=== PATIENT | female | born 1945 | race Caucasian/White ===

== ENCOUNTER 2021-11-08 14:07 | Inpatient (IN) ==
[2021-11-08] MEDS: MOM Conc 10 ML UD.LIQ PO PRN (16:12)
[2021-11-08] MEDS ORDERED: Nitroglycerin 0.4 MG TAB.SUBL SL PRN (16:23)
[2021-11-08] MEDS ORDERED: SUMAtriptan succinate 50 MG TABLET PO PRN (16:23)
[2021-11-08] MEDS ORDERED: *HR* Dextrose 50 % in Water (Syg) 50 ML SYRINGE IVP PRN (16:25)
[2021-11-08] MEDS ORDERED: Dextrose Gel 15 GM/37.5 ML TUBE PO PRN ×2 (16:25)
[2021-11-08] MEDS ORDERED: D5% in Water 1,000 ML IVC PRN (16:25)
[2021-11-08] MEDS: Insulin LISPRO 300 UNITS/3 ML VIAL SUBQ SCH ×2 (19:01→20:06)
[2021-11-08] MEDS: tiZANidine 4 MG TABLET PO SCH (20:14)
[2021-11-08] MEDS: Gabapentin 300 MG CAPSULE PO SCH (20:14)
[2021-11-08] MEDS: Sennosides/Docusate Sodium TABLET PO SCH (20:14)
[2021-11-08] MEDS: Mirtazapine 15 MG TABLET PO SCH (20:14)
[2021-11-08] MEDS: traZODone 50 MG TABLET PO SCH (20:14)
[2021-11-08] MEDS: QUEtiapine Fumarate 100 MG TABLET PO SCH (20:14)
[2021-11-08] MEDS: *HR* OxyCODONE/APAP 5/325 TABLET PO PRN (20:15)
[2021-11-08] MEDS: Lactobacillus 1 EACH CAP.SPRINK PO SCH (20:15)
[2021-11-08] MEDS: *HR* Heparin 5,000 UNIT/ML VIAL SQ SCH (20:59)
[2021-11-08] MEDS: Budesonide/Formoterol 160/4.5 1 PUFF INH IH SCH (21:59)
[2021-11-09] MEDS: *HR* OxyCODONE/APAP 5/325 TABLET PO PRN ×3 (04:33→21:12)
[2021-11-09] MEDS: *HR* Heparin 5,000 UNIT/ML VIAL SQ SCH ×3 (06:12→21:16)
[2021-11-09 08:19] LABS: Basophils % 0.4 %; Eosinophils # 0.1 K/mcL (0.0-0.6); Eosinophils % 1.8 %; Hematocrit 30.7 % (35.3-44.9); Hemoglobin 9.9 g/dL (11.5-15.4); Immature Granulocytes % 0.7 % (0-4); Lymphocytes # 1.8 K/mcL (0.6-4.6); Lymphocytes % 23.9 %; Mean Corpuscular HGB Conc 32.2 g/dL (31.6-35.5); Mean Corpuscular Hemoglobin 27.8 pg (28.0-33.3); Mean Corpuscular Volume 86.2 fL (83.0-100.0); Mean Platelet Volume 10.8 fL (9.4-12.4); Monocytes # 0.7 K/mcL (0.0-1.3); Monocytes % 10.1 %; Neutrophils # 4.7 K/mcL (1.6-8.9); Platelet Count 196 K/mcL (140-400); Red Blood Count 3.56 M/mcL (3.82-4.97); Red Cell Distribution Width 13.3 % (11.5-14.5); Segmented Neutrophils % 63.1 %; White Blood Count 7.4 K/mcL (4.3-11.1)
[2021-11-09 08:53] LABS: Potassium 4.4 mEq/L (3.5-5.1)
[2021-11-09] MEDS: Tiotropium 10 INH DOSE IH SCH (09:10)
[2021-11-09] MEDS: Budesonide/Formoterol 160/4.5 1 PUFF INH IH SCH ×2 (09:10→21:45)
[2021-11-09] MEDS: Insulin LISPRO 300 UNITS/3 ML VIAL SUBQ SCH ×4 (09:27→21:10)
[2021-11-09] MEDS: Aspirin Enteric Coated 81 MG Tablet PO SCH (09:27)
[2021-11-09] MEDS: Gabapentin 300 MG CAPSULE PO SCH ×4 (09:28→21:16)
[2021-11-09] MEDS: Sennosides/Docusate Sodium TABLET PO SCH ×2 (09:28→21:12)
[2021-11-09] MEDS: Lactobacillus 1 EACH CAP.SPRINK PO SCH ×2 (09:28→21:13)
[2021-11-09 11:51] LABS: Bilirubin,Urine Negative (Negative); Blood,Urine Trace-lysed (Negative); Clarity,Urine Clear (Clear); Glucose,Urine (UA) 250 mg/dL (Normal); Ketones,Urine Negative (Negative); Leukocyte Esterase,Urine Negative (Negative); Nitrite,Urine Negative (Negative); PH,Urine 6.5 pH Units (5.0-8.0); Protein,Urine Negative (Neg-Trace); Urobilinogen,Urine Normal (Normal)
[2021-11-09 11:53] LABS: Color,Urine Light Yellow (Yellow)
[2021-11-09 13:06] LABS: Bacteria,Urine Few per hpf (None-Few); RBC,Urine 0-3 per hpf (0-3); Squamous Epithelial Cell,Urine Few per hpf (None-Few); WBC,Urine 0-3 per hpf (0-3)
[2021-11-09] MEDS: traZODone 50 MG TABLET PO SCH (21:11)
[2021-11-09] MEDS: tiZANidine 4 MG TABLET PO SCH (21:13)
[2021-11-09] MEDS: Mirtazapine 15 MG TABLET PO SCH (21:13)
[2021-11-09] MEDS: QUEtiapine Fumarate 100 MG TABLET PO SCH (21:13)
[2021-11-10] MEDS: *HR* OxyCODONE/APAP 5/325 TABLET PO PRN ×2 (06:31→16:07)
[2021-11-10] MEDS: *HR* Heparin 5,000 UNIT/ML VIAL SQ SCH ×3 (06:32→21:27)
[2021-11-10] MEDS: Lactobacillus 1 EACH CAP.SPRINK PO SCH ×2 (08:58→21:26)
[2021-11-10] MEDS: Gabapentin 300 MG CAPSULE PO SCH ×4 (08:59→21:26)
[2021-11-10] MEDS: Sennosides/Docusate Sodium TABLET PO SCH ×2 (08:59→21:26)
[2021-11-10] MEDS: Aspirin Enteric Coated 81 MG Tablet PO SCH (09:01)
[2021-11-10] MEDS: Insulin LISPRO 300 UNITS/3 ML VIAL SUBQ SCH ×4 (09:18→21:28)
[2021-11-10] MEDS: Budesonide/Formoterol 160/4.5 1 PUFF INH IH SCH ×2 (10:35→22:34)
[2021-11-10] MEDS: Tiotropium 10 INH DOSE IH SCH (10:36)
[2021-11-10] MEDS: MOM Conc 10 ML UD.LIQ PO PRN (16:07)
[2021-11-10] MEDS: traZODone 50 MG TABLET PO SCH (21:26)
[2021-11-10] MEDS: QUEtiapine Fumarate 100 MG TABLET PO SCH (21:26)
[2021-11-10] MEDS: tiZANidine 4 MG TABLET PO SCH (21:27)
[2021-11-10] MEDS: Mirtazapine 15 MG TABLET PO SCH (21:27)
[2021-11-11] MEDS: *HR* Heparin 5,000 UNIT/ML VIAL SQ SCH ×3 (05:43→21:29)
[2021-11-11 07:53] LABS: Basophils % 0.5 %; Eosinophils # 0.2 K/mcL (0.0-0.6); Eosinophils % 1.8 %; Hemoglobin 10.8 g/dL (11.5-15.4); Immature Granulocytes % 1.8 % (0-4); Lymphocytes # 1.8 K/mcL (0.6-4.6); Lymphocytes % 21.9 %; Mean Corpuscular HGB Conc 33.8 g/dL (31.6-35.5); Mean Corpuscular Hemoglobin 28.7 pg (28.0-33.3); Mean Corpuscular Volume 85.1 fL (83.0-100.0); Mean Platelet Volume 10.4 fL (9.4-12.4); Monocytes # 0.9 K/mcL (0.0-1.3); Monocytes % 10.6 %; Neutrophils # 5.2 K/mcL (1.6-8.9); Platelet Count 249 K/mcL (140-400); Red Blood Count 3.76 M/mcL (3.82-4.97); Red Cell Distribution Width 13.3 % (11.5-14.5); Segmented Neutrophils % 63.4 %; White Blood Count 8.2 K/mcL (4.3-11.1)
[2021-11-11 08:05] LABS: Calcium 9.8 mg/dL (8.6-10.3); Potassium 4.7 mEq/L (3.5-5.1)
[2021-11-11] MEDS: Gabapentin 300 MG CAPSULE PO SCH ×4 (08:55→21:28)
[2021-11-11] MEDS: Aspirin Enteric Coated 81 MG Tablet PO SCH (08:55)
[2021-11-11] MEDS: Sennosides/Docusate Sodium TABLET PO SCH ×2 (08:55→21:29)
[2021-11-11] MEDS: Lactobacillus 1 EACH CAP.SPRINK PO SCH ×2 (08:55→21:29)
[2021-11-11] MEDS: *HR* OxyCODONE/APAP 5/325 TABLET PO PRN ×3 (08:56→21:29)
[2021-11-11] MEDS: Insulin LISPRO 300 UNITS/3 ML VIAL SUBQ SCH ×4 (08:56→21:30)
[2021-11-11] MEDS: Budesonide/Formoterol 160/4.5 1 PUFF INH IH SCH ×2 (10:09→21:57)
[2021-11-11] MEDS: Tiotropium 10 INH DOSE IH SCH (10:10)
[2021-11-11] MEDS: tiZANidine 4 MG TABLET PO SCH (21:28)
[2021-11-11] MEDS: QUEtiapine Fumarate 100 MG TABLET PO SCH (21:29)
[2021-11-11] MEDS: traZODone 50 MG TABLET PO SCH (21:29)
[2021-11-11] MEDS: Mirtazapine 15 MG TABLET PO SCH (21:29)
[2021-11-12] MEDS: *HR* Heparin 5,000 UNIT/ML VIAL SQ SCH ×3 (06:27→21:31)
[2021-11-12] MEDS: Aspirin Enteric Coated 81 MG Tablet PO SCH (08:17)
[2021-11-12] MEDS: Gabapentin 300 MG CAPSULE PO SCH ×4 (08:17→21:30)
[2021-11-12] MEDS: Lactobacillus 1 EACH CAP.SPRINK PO SCH ×2 (08:17→21:30)
[2021-11-12] MEDS: Sennosides/Docusate Sodium TABLET PO SCH ×2 (08:17→21:31)
[2021-11-12] MEDS: Insulin LISPRO 300 UNITS/3 ML VIAL SUBQ SCH ×4 (08:18→21:32)
[2021-11-12] MEDS: Budesonide/Formoterol 160/4.5 1 PUFF INH IH SCH ×2 (09:37→22:36)
[2021-11-12] MEDS: Tiotropium 10 INH DOSE IH SCH (09:38)
[2021-11-12] MEDS: Nitrofurantoin (BID) 100 MG CAPSULE PO SCH (17:03)
[2021-11-12] MEDS: *HR* OxyCODONE/APAP 5/325 TABLET PO PRN (17:04)
[2021-11-12] MEDS ORDERED: *HR* OxyCODONE Immed Rel 5 MG TABLET PO ONE (19:53)
[2021-11-12] MEDS: traZODone 50 MG TABLET PO SCH (21:30)
[2021-11-12] MEDS: QUEtiapine Fumarate 100 MG TABLET PO SCH (21:31)
[2021-11-12] MEDS: tiZANidine 4 MG TABLET PO SCH (21:31)
[2021-11-12] MEDS: Mirtazapine 15 MG TABLET PO SCH (21:31)
[2021-11-13] MEDS: *HR* Heparin 5,000 UNIT/ML VIAL SQ SCH ×3 (06:58→22:08)
[2021-11-13] MEDS: *HR* OxyCODONE/APAP 5/325 TABLET PO PRN ×2 (06:58→19:57)
[2021-11-13] MEDS: Budesonide/Formoterol 160/4.5 1 PUFF INH IH SCH ×2 (09:18→22:38)
[2021-11-13] MEDS: Tiotropium 10 INH DOSE IH SCH (09:19)
[2021-11-13] MEDS: Aspirin Enteric Coated 81 MG Tablet PO SCH (09:39)
[2021-11-13] MEDS: Nitrofurantoin (BID) 100 MG CAPSULE PO SCH ×2 (09:39→16:44)
[2021-11-13] MEDS: Sennosides/Docusate Sodium TABLET PO SCH ×2 (09:39→19:58)
[2021-11-13] MEDS: Lactobacillus 1 EACH CAP.SPRINK PO SCH ×2 (09:39→19:58)
[2021-11-13] MEDS: Insulin LISPRO 300 UNITS/3 ML VIAL SUBQ SCH ×4 (09:40→19:59)
[2021-11-13] MEDS: Gabapentin 300 MG CAPSULE PO SCH ×4 (09:40→19:59)
[2021-11-13] MEDS: traZODone 50 MG TABLET PO SCH (19:58)
[2021-11-13] MEDS: QUEtiapine Fumarate 100 MG TABLET PO SCH (19:58)
[2021-11-13] MEDS: Mirtazapine 15 MG TABLET PO SCH (19:58)
[2021-11-13] MEDS: tiZANidine 4 MG TABLET PO SCH (19:59)
[2021-11-14] MEDS: *HR* Heparin 5,000 UNIT/ML VIAL SQ SCH ×3 (06:23→19:55)
[2021-11-14] MEDS: Tiotropium 10 INH DOSE IH SCH (09:42)
[2021-11-14] MEDS: Budesonide/Formoterol 160/4.5 1 PUFF INH IH SCH ×2 (09:42→20:58)
[2021-11-14] MEDS: Gabapentin 300 MG CAPSULE PO SCH ×4 (10:33→19:52)
[2021-11-14] MEDS: Nitrofurantoin (BID) 100 MG CAPSULE PO SCH ×2 (10:33→17:45)
[2021-11-14] MEDS: Lactobacillus 1 EACH CAP.SPRINK PO SCH ×2 (10:33→19:52)
[2021-11-14] MEDS: Sennosides/Docusate Sodium TABLET PO SCH ×2 (10:33→19:52)
[2021-11-14] MEDS: *HR* OxyCODONE/APAP 5/325 TABLET PO PRN ×2 (10:34→19:52)
[2021-11-14] MEDS: Aspirin Enteric Coated 81 MG Tablet PO SCH (10:34)
[2021-11-14] MEDS: Insulin LISPRO 300 UNITS/3 ML VIAL SUBQ SCH ×4 (10:44→19:53)
[2021-11-14] MEDS: traZODone 50 MG TABLET PO SCH (19:51)
[2021-11-14] MEDS: tiZANidine 4 MG TABLET PO SCH (19:52)
[2021-11-14] MEDS: Mirtazapine 15 MG TABLET PO SCH (19:52)
[2021-11-14] MEDS: QUEtiapine Fumarate 100 MG TABLET PO SCH (19:52)
[2021-11-15] MEDS: *HR* Heparin 5,000 UNIT/ML VIAL SQ SCH ×3 (05:59→19:55)
[2021-11-15] MEDS: *HR* OxyCODONE/APAP 5/325 TABLET PO PRN ×2 (06:00→17:20)
[2021-11-15 07:54] LABS: Basophils # 0.1 K/mcL (0.0-0.2); Basophils % 0.7 %; Eosinophils # 0.1 K/mcL (0.0-0.6); Eosinophils % 1.7 %; Hematocrit 29.9 % (35.3-44.9); Hemoglobin 9.9 g/dL (11.5-15.4); Immature Granulocytes % 2.5 % (0-4); Lymphocytes # 2.6 K/mcL (0.6-4.6); Lymphocytes % 30.8 %; Mean Corpuscular HGB Conc 33.1 g/dL (31.6-35.5); Mean Corpuscular Hemoglobin 28.7 pg (28.0-33.3); Mean Corpuscular Volume 86.7 fL (83.0-100.0); Mean Platelet Volume 10.2 fL (9.4-12.4); Monocytes # 0.8 K/mcL (0.0-1.3); Monocytes % 9.2 %; Neutrophils # 4.6 K/mcL (1.6-8.9); Platelet Count 214 K/mcL (140-400); Red Blood Count 3.45 M/mcL (3.82-4.97); Red Cell Distribution Width 13.7 % (11.5-14.5); Segmented Neutrophils % 55.1 %; White Blood Count 8.4 K/mcL (4.3-11.1)
[2021-11-15 08:32] LABS: Calcium 9.7 mg/dL (8.6-10.3); Potassium 4.5 mEq/L (3.5-5.1)
[2021-11-15] MEDS: Tiotropium 10 INH DOSE IH SCH (09:20)
[2021-11-15] MEDS: Budesonide/Formoterol 160/4.5 1 PUFF INH IH SCH ×2 (09:20→21:31)
[2021-11-15] MEDS: Sennosides/Docusate Sodium TABLET PO SCH ×2 (09:29→19:55)
[2021-11-15] MEDS: Gabapentin 300 MG CAPSULE PO SCH ×4 (09:29→19:54)
[2021-11-15] MEDS: Nitrofurantoin (BID) 100 MG CAPSULE PO SCH ×2 (09:29→17:20)
[2021-11-15] MEDS: Lactobacillus 1 EACH CAP.SPRINK PO SCH ×2 (09:30→19:54)
[2021-11-15] MEDS: Insulin LISPRO 300 UNITS/3 ML VIAL SUBQ SCH ×4 (09:35→19:46)
[2021-11-15] MEDS: Mirtazapine 15 MG TABLET PO SCH (19:54)
[2021-11-15] MEDS: tiZANidine 4 MG TABLET PO SCH (19:54)
[2021-11-15] MEDS: traZODone 50 MG TABLET PO SCH (19:54)
[2021-11-15] MEDS: QUEtiapine Fumarate 100 MG TABLET PO SCH (19:55)
[2021-11-16] MEDS: *HR* Heparin 5,000 UNIT/ML VIAL SQ SCH ×3 (05:51→20:33)
[2021-11-16] MEDS: Sennosides/Docusate Sodium TABLET PO SCH ×2 (08:12→20:34)
[2021-11-16] MEDS: *HR* OxyCODONE/APAP 5/325 TABLET PO PRN ×2 (08:12→15:53)
[2021-11-16] MEDS: Nitrofurantoin (BID) 100 MG CAPSULE PO SCH ×2 (08:12→15:53)
[2021-11-16] MEDS: Gabapentin 300 MG CAPSULE PO SCH ×4 (08:12→20:34)
[2021-11-16] MEDS: Lactobacillus 1 EACH CAP.SPRINK PO SCH ×2 (08:13→20:34)
[2021-11-16] MEDS: Insulin LISPRO 300 UNITS/3 ML VIAL SUBQ SCH ×4 (08:13→22:42)
[2021-11-16] MEDS: Budesonide/Formoterol 160/4.5 1 PUFF INH IH SCH ×2 (09:37→21:32)
[2021-11-16] MEDS: Tiotropium 10 INH DOSE IH SCH (09:37)
[2021-11-16] MEDS: polyethylene glycoL 3350 17 GM POWD.PACK PO SCH (11:20)
[2021-11-16] MEDS: Mirtazapine 15 MG TABLET PO SCH (20:34)
[2021-11-16] MEDS: tiZANidine 4 MG TABLET PO SCH (20:34)
[2021-11-16] MEDS: traZODone 50 MG TABLET PO SCH (20:34)
[2021-11-16] MEDS: QUEtiapine Fumarate 100 MG TABLET PO SCH (20:35)
[2021-11-16] MEDS: Ondansetron ODT 4 MG TAB.RAPDIS SL PRN (20:40)
[2021-11-17] MEDS: *HR* OxyCODONE/APAP 5/325 TABLET PO PRN ×2 (05:48→18:02)
[2021-11-17] MEDS: Insulin LISPRO 300 UNITS/3 ML VIAL SUBQ SCH ×4 (08:52→19:48)
[2021-11-17] MEDS: polyethylene glycoL 3350 17 GM POWD.PACK PO SCH (08:52)
[2021-11-17] MEDS: Sennosides/Docusate Sodium TABLET PO SCH ×2 (08:53→20:59)
[2021-11-17] MEDS: Gabapentin 300 MG CAPSULE PO SCH ×4 (08:53→20:59)
[2021-11-17] MEDS: Lactobacillus 1 EACH CAP.SPRINK PO SCH ×2 (08:53→20:59)
[2021-11-17] MEDS: Budesonide/Formoterol 160/4.5 1 PUFF INH IH SCH ×2 (09:36→21:38)
[2021-11-17] MEDS: Tiotropium 10 INH DOSE IH SCH (09:36)
[2021-11-17] MEDS: traZODone 50 MG TABLET PO SCH (20:58)
[2021-11-17] MEDS: QUEtiapine Fumarate 100 MG TABLET PO SCH (20:58)
[2021-11-17] MEDS: tiZANidine 4 MG TABLET PO SCH (20:58)
[2021-11-17] MEDS: Mirtazapine 15 MG TABLET PO SCH (20:59)
[2021-11-18] MEDS ORDERED: Famotidine 20 MG/2 ML VIAL IVP ONE (07:32)
[2021-11-18] MEDS ORDERED: Acetaminophen IV 1,000 MG/100 ML BAG IVPB ONE (07:33)
[2021-11-18] MEDS: Tiotropium 10 INH DOSE IH SCH (07:56)
[2021-11-18] MEDS: Budesonide/Formoterol 160/4.5 1 PUFF INH IH SCH ×2 (07:56→20:17)
[2021-11-18] MEDS ORDERED: *HR* OxyCODONE Immed Rel 5 MG TABLET PO PRN (12:42)
[2021-11-18] MEDS: Lactobacillus 1 EACH CAP.SPRINK PO SCH ×2 (16:09→21:36)
[2021-11-18] MEDS: Insulin LISPRO 300 UNITS/3 ML VIAL SUBQ SCH ×4 (16:09→21:43)
[2021-11-18] MEDS: Sennosides/Docusate Sodium TABLET PO SCH ×2 (16:10→21:38)
[2021-11-18] MEDS: polyethylene glycoL 3350 17 GM POWD.PACK PO SCH (16:10)
[2021-11-18] MEDS: Gabapentin 300 MG CAPSULE PO SCH ×4 (16:10→21:37)
[2021-11-18] MEDS: *HR* OxyCODONE/APAP 5/325 TABLET PO PRN (18:35)
[2021-11-18] MEDS: tiZANidine 4 MG TABLET PO SCH (21:36)
[2021-11-18] MEDS: QUEtiapine Fumarate 100 MG TABLET PO SCH (21:36)
[2021-11-18] MEDS: traZODone 50 MG TABLET PO SCH (21:37)
[2021-11-18] MEDS: Mirtazapine 15 MG TABLET PO SCH (21:38)
[2021-11-19] MEDS: *HR* OxyCODONE/APAP 5/325 TABLET PO PRN ×4 (02:05→22:33)
[2021-11-19] MEDS: Tiotropium 10 INH DOSE IH SCH (09:10)
[2021-11-19] MEDS: Budesonide/Formoterol 160/4.5 1 PUFF INH IH SCH ×2 (09:10→21:38)
[2021-11-19] MEDS: Insulin LISPRO 300 UNITS/3 ML VIAL SUBQ SCH ×4 (09:37→20:14)
[2021-11-19] MEDS: Gabapentin 300 MG CAPSULE PO SCH ×4 (09:38→20:13)
[2021-11-19] MEDS: Lactobacillus 1 EACH CAP.SPRINK PO SCH ×2 (09:39→20:12)
[2021-11-19] MEDS: Sennosides/Docusate Sodium TABLET PO SCH ×2 (09:39→20:13)
[2021-11-19] MEDS: Aspirin Enteric Coated 81 MG Tablet PO SCH (09:39)
[2021-11-19] MEDS: polyethylene glycoL 3350 17 GM POWD.PACK PO SCH (09:40)
[2021-11-19] MEDS: *HR* Heparin 5,000 UNIT/ML VIAL SQ SCH ×2 (13:21→22:33)
[2021-11-19] MEDS: QUEtiapine Fumarate 100 MG TABLET PO SCH (20:12)
[2021-11-19] MEDS: tiZANidine 4 MG TABLET PO SCH (20:13)
[2021-11-19] MEDS: Mirtazapine 15 MG TABLET PO SCH (20:13)
[2021-11-19] MEDS: traZODone 50 MG TABLET PO SCH (20:13)
[2021-11-20] MEDS: *HR* Heparin 5,000 UNIT/ML VIAL SQ SCH ×3 (06:21→20:19)
[2021-11-20] MEDS: *HR* OxyCODONE/APAP 5/325 TABLET PO PRN ×3 (06:21→20:17)
[2021-11-20 07:18] LABS: Basophils % 0.2 %; Eosinophils % 0.2 %; Hematocrit 29.1 % (35.3-44.9); Hemoglobin 9.5 g/dL (11.5-15.4); Immature Granulocytes % 0.6 % (0-4); Lymphocytes # 1.9 K/mcL (0.6-4.6); Lymphocytes % 17.6 %; Mean Corpuscular HGB Conc 32.6 g/dL (31.6-35.5); Mean Corpuscular Hemoglobin 28.7 pg (28.0-33.3); Mean Corpuscular Volume 87.9 fL (83.0-100.0); Mean Platelet Volume 10.5 fL (9.4-12.4); Monocytes # 1.2 K/mcL (0.0-1.3); Monocytes % 10.9 %; Neutrophils # 7.4 K/mcL (1.6-8.9); Platelet Count 213 K/mcL (140-400); Red Blood Count 3.31 M/mcL (3.82-4.97); Red Cell Distribution Width 14.1 % (11.5-14.5); Segmented Neutrophils % 70.5 %; White Blood Count 10.5 K/mcL (4.3-11.1)
[2021-11-20 08:07] LABS: Calcium 9.2 mg/dL (8.6-10.3); Potassium 4.2 mEq/L (3.5-5.1)
[2021-11-20] MEDS: polyethylene glycoL 3350 17 GM POWD.PACK PO SCH (08:08)
[2021-11-20] MEDS: Gabapentin 300 MG CAPSULE PO SCH ×4 (08:08→20:18)
[2021-11-20] MEDS: Aspirin Enteric Coated 81 MG Tablet PO SCH (08:08)
[2021-11-20] MEDS: Lactobacillus 1 EACH CAP.SPRINK PO SCH ×2 (08:08→20:19)
[2021-11-20] MEDS: Insulin LISPRO 300 UNITS/3 ML VIAL SUBQ SCH ×4 (08:09→20:20)
[2021-11-20] MEDS: Sennosides/Docusate Sodium TABLET PO SCH ×2 (08:09→20:18)
[2021-11-20] MEDS: Budesonide/Formoterol 160/4.5 1 PUFF INH IH SCH ×2 (09:00→21:18)
[2021-11-20] MEDS: Tiotropium 10 INH DOSE IH SCH (09:01)
[2021-11-20] MEDS: traZODone 50 MG TABLET PO SCH (20:18)
[2021-11-20] MEDS: Mirtazapine 15 MG TABLET PO SCH (20:18)
[2021-11-20] MEDS: QUEtiapine Fumarate 100 MG TABLET PO SCH (20:18)
[2021-11-20] MEDS: tiZANidine 4 MG TABLET PO SCH (20:19)
[2021-11-21] MEDS: *HR* Heparin 5,000 UNIT/ML VIAL SQ SCH ×3 (06:14→20:31)
[2021-11-21] MEDS: Tiotropium 10 INH DOSE IH SCH (08:04)
[2021-11-21] MEDS: Budesonide/Formoterol 160/4.5 1 PUFF INH IH SCH ×2 (08:04→20:58)
[2021-11-21] MEDS: Insulin LISPRO 300 UNITS/3 ML VIAL SUBQ SCH ×4 (08:51→20:30)
[2021-11-21] MEDS: Sennosides/Docusate Sodium TABLET PO SCH ×2 (08:54→20:30)
[2021-11-21] MEDS: Gabapentin 300 MG CAPSULE PO SCH ×4 (08:54→20:30)
[2021-11-21] MEDS: Lactobacillus 1 EACH CAP.SPRINK PO SCH ×2 (08:54→20:30)
[2021-11-21] MEDS: Aspirin Enteric Coated 81 MG Tablet PO SCH (08:54)
[2021-11-21] MEDS: polyethylene glycoL 3350 17 GM POWD.PACK PO SCH (08:55)
[2021-11-21] MEDS: *HR* OxyCODONE/APAP 5/325 TABLET PO PRN ×2 (09:00→16:33)
[2021-11-21] MEDS: Mirtazapine 15 MG TABLET PO SCH (20:29)
[2021-11-21] MEDS: QUEtiapine Fumarate 100 MG TABLET PO SCH (20:29)
[2021-11-21] MEDS: tiZANidine 4 MG TABLET PO SCH (20:29)
[2021-11-21] MEDS: traZODone 50 MG TABLET PO SCH (20:30)
[2021-11-22] MEDS: *HR* Heparin 5,000 UNIT/ML VIAL SQ SCH ×3 (05:25→21:46)
[2021-11-22 07:27] LABS: Hematocrit 27.5 % (35.3-44.9); Hemoglobin 8.8 g/dL (11.5-15.4); Mean Corpuscular Hemoglobin 28.1 pg (28.0-33.3); Mean Corpuscular Volume 87.9 fL (83.0-100.0); Mean Platelet Volume 10.4 fL (9.4-12.4); Platelet Count 216 K/mcL (140-400); Red Blood Count 3.13 M/mcL (3.82-4.97); Red Cell Distribution Width 13.9 % (11.5-14.5); White Blood Count 8.1 K/mcL (4.3-11.1)
[2021-11-22] MEDS: Gabapentin 300 MG CAPSULE PO SCH ×4 (07:57→20:32)
[2021-11-22] MEDS: Sennosides/Docusate Sodium TABLET PO SCH ×2 (07:57→20:33)
[2021-11-22] MEDS: Lactobacillus 1 EACH CAP.SPRINK PO SCH ×2 (07:57→20:33)
[2021-11-22] MEDS: Insulin LISPRO 300 UNITS/3 ML VIAL SUBQ SCH ×4 (07:58→20:34)
[2021-11-22] MEDS: Aspirin Enteric Coated 81 MG Tablet PO SCH (07:58)
[2021-11-22] MEDS: polyethylene glycoL 3350 17 GM POWD.PACK PO SCH (07:58)
[2021-11-22 08:16] LABS: Calcium 9.1 mg/dL (8.6-10.3); Potassium 4.3 mEq/L (3.5-5.1)
[2021-11-22] MEDS: Budesonide/Formoterol 160/4.5 1 PUFF INH IH SCH ×2 (08:31→19:45)
[2021-11-22] MEDS: Tiotropium 10 INH DOSE IH SCH (08:31)
[2021-11-22] MEDS: *HR* OxyCODONE/APAP 5/325 TABLET PO PRN (15:23)
[2021-11-22] MEDS ORDERED: Dextrose Gel 15 GM/37.5 ML TUBE PO PRN ×2 (15:25)
[2021-11-22] MEDS ORDERED: D5% in Water 1,000 ML IVC PRN (15:25)
[2021-11-22] MEDS ORDERED: *HR* Dextrose 50 % in Water (Syg) 50 ML SYRINGE IVP PRN (15:25)
[2021-11-22] MEDS ORDERED: Sennosides/Docusate Sodium TABLET ONE (19:49)
[2021-11-22] MEDS ORDERED: tiZANidine 4 MG TABLET ONE (19:49)
[2021-11-22] MEDS ORDERED: Lactobacillus 1 EACH CAP.SPRINK ONE (19:49)
[2021-11-22] MEDS ORDERED: QUEtiapine Fumarate 100 MG TABLET ONE (19:50)
[2021-11-22] MEDS ORDERED: traZODone 50 MG TABLET ONE (19:50)
[2021-11-22] MEDS ORDERED: Mirtazapine 15 MG TABLET ONE (19:50)
[2021-11-22] MEDS ORDERED: Gabapentin 300 MG CAPSULE ONE (19:51)
[2021-11-22] MEDS ORDERED: *HR* Heparin 5,000 UNIT/ML VIAL ONE (19:51)
[2021-11-22] MEDS: tiZANidine 4 MG TABLET PO SCH (20:32)
[2021-11-22] MEDS: QUEtiapine Fumarate 100 MG TABLET PO SCH (20:33)
[2021-11-22] MEDS: Mirtazapine 15 MG TABLET PO SCH (20:33)
[2021-11-22] MEDS: traZODone 50 MG TABLET PO SCH (20:34)
[2021-11-23] MEDS: *HR* Heparin 5,000 UNIT/ML VIAL SQ SCH ×3 (06:23→20:29)
[2021-11-23] MEDS: Sennosides/Docusate Sodium TABLET PO SCH ×2 (08:15→20:26)
[2021-11-23] MEDS: Gabapentin 300 MG CAPSULE PO SCH ×4 (08:16→20:27)
[2021-11-23] MEDS: Lactobacillus 1 EACH CAP.SPRINK PO SCH ×2 (08:16→20:26)
[2021-11-23] MEDS: Aspirin Enteric Coated 81 MG Tablet PO SCH (08:17)
[2021-11-23] MEDS: polyethylene glycoL 3350 17 GM POWD.PACK PO SCH (08:17)
[2021-11-23] MEDS: Insulin LISPRO 300 UNITS/3 ML VIAL SUBQ SCH ×4 (08:32→19:45)
[2021-11-23] MEDS: Budesonide/Formoterol 160/4.5 1 PUFF INH IH SCH ×2 (08:45→21:04)
[2021-11-23] MEDS: Tiotropium 10 INH DOSE IH SCH (08:48)
[2021-11-23] MEDS: *HR* OxyCODONE/APAP 5/325 TABLET PO PRN (16:24)
[2021-11-23] MEDS: tiZANidine 4 MG TABLET PO SCH (20:25)
[2021-11-23] MEDS: Mirtazapine 15 MG TABLET PO SCH (20:26)
[2021-11-23] MEDS: QUEtiapine Fumarate 100 MG TABLET PO SCH (20:27)
[2021-11-23] MEDS: traZODone 50 MG TABLET PO SCH (20:27)
[2021-11-24] MEDS: *HR* Heparin 5,000 UNIT/ML VIAL SQ SCH ×3 (06:14→21:59)
[2021-11-24] MEDS: Budesonide/Formoterol 160/4.5 1 PUFF INH IH SCH ×2 (07:33→21:23)
[2021-11-24] MEDS: Tiotropium 10 INH DOSE IH SCH (07:34)
[2021-11-24] MEDS: Insulin LISPRO 300 UNITS/3 ML VIAL SUBQ SCH ×4 (07:48→20:15)
[2021-11-24] MEDS: Aspirin Enteric Coated 81 MG Tablet PO SCH (07:51)
[2021-11-24] MEDS: Gabapentin 300 MG CAPSULE PO SCH ×4 (07:51→20:13)
[2021-11-24] MEDS: *HR* OxyCODONE/APAP 5/325 TABLET PO PRN ×2 (07:52→18:32)
[2021-11-24] MEDS: Sennosides/Docusate Sodium TABLET PO SCH ×2 (07:52→20:15)
[2021-11-24] MEDS: Lactobacillus 1 EACH CAP.SPRINK PO SCH ×2 (07:52→20:14)
[2021-11-24] MEDS: polyethylene glycoL 3350 17 GM POWD.PACK PO SCH (07:53)
[2021-11-24] MEDS: QUEtiapine Fumarate 100 MG TABLET PO SCH (20:13)
[2021-11-24] MEDS: Mirtazapine 15 MG TABLET PO SCH (20:14)
[2021-11-24] MEDS: traZODone 50 MG TABLET PO SCH (20:14)
[2021-11-24] MEDS: tiZANidine 4 MG TABLET PO SCH (20:15)
[2021-11-25] MEDS: *HR* Heparin 5,000 UNIT/ML VIAL SQ SCH ×3 (05:57→20:54)
[2021-11-25] MEDS: Budesonide/Formoterol 160/4.5 1 PUFF INH IH SCH ×2 (09:51→21:18)
[2021-11-25] MEDS: Tiotropium 10 INH DOSE IH SCH (09:52)
[2021-11-25] MEDS: Insulin LISPRO 300 UNITS/3 ML VIAL SUBQ SCH ×4 (10:05→20:54)
[2021-11-25] MEDS: Gabapentin 300 MG CAPSULE PO SCH ×4 (10:06→20:53)
[2021-11-25] MEDS: Lactobacillus 1 EACH CAP.SPRINK PO SCH ×2 (10:06→20:54)
[2021-11-25] MEDS: Aspirin Enteric Coated 81 MG Tablet PO SCH (10:06)
[2021-11-25] MEDS: Sennosides/Docusate Sodium TABLET PO SCH ×2 (10:06→20:52)
[2021-11-25] MEDS: polyethylene glycoL 3350 17 GM POWD.PACK PO SCH (10:06)
[2021-11-25] MEDS: *HR* OxyCODONE/APAP 5/325 TABLET PO PRN ×2 (12:25→20:52)
[2021-11-25] MEDS: QUEtiapine Fumarate 100 MG TABLET PO SCH (20:53)
[2021-11-25] MEDS: tiZANidine 4 MG TABLET PO SCH (20:53)
[2021-11-25] MEDS: Mirtazapine 15 MG TABLET PO SCH (20:54)
[2021-11-25] MEDS: traZODone 50 MG TABLET PO SCH (22:06)
[2021-11-26] MEDS: *HR* Heparin 5,000 UNIT/ML VIAL SQ SCH ×3 (06:25→22:04)
[2021-11-26 07:11] LABS: Basophils % 0.4 %; Eosinophils # 0.2 K/mcL (0.0-0.6); Eosinophils % 2.4 %; Hematocrit 27.7 % (35.3-44.9); Hemoglobin 8.9 g/dL (11.5-15.4); Immature Granulocytes % 1.3 % (0-4); Lymphocytes # 2.4 K/mcL (0.6-4.6); Lymphocytes % 31.3 %; Mean Corpuscular HGB Conc 32.1 g/dL (31.6-35.5); Mean Corpuscular Hemoglobin 28.3 pg (28.0-33.3); Mean Corpuscular Volume 88.2 fL (83.0-100.0); Mean Platelet Volume 10.2 fL (9.4-12.4); Monocytes # 0.8 K/mcL (0.0-1.3); Monocytes % 10.8 %; Neutrophils # 4.1 K/mcL (1.6-8.9); Platelet Count 255 K/mcL (140-400); Red Blood Count 3.14 M/mcL (3.82-4.97); Red Cell Distribution Width 13.8 % (11.5-14.5); Segmented Neutrophils % 53.8 %; White Blood Count 7.6 K/mcL (4.3-11.1)
[2021-11-26 07:34] LABS: Calcium 10.4 mg/dL (8.6-10.3); Magnesium 1.7 mg/dL (1.6-2.6); Potassium 4.7 mEq/L (3.5-5.1)
[2021-11-26] MEDS: Budesonide/Formoterol 160/4.5 1 PUFF INH IH SCH ×2 (07:55→20:44)
[2021-11-26] MEDS: Tiotropium 10 INH DOSE IH SCH (07:55)
[2021-11-26 08:03] LABS: Platelet Estimate Normal (Normal)
[2021-11-26] MEDS: Gabapentin 300 MG CAPSULE PO SCH ×4 (08:15→20:48)
[2021-11-26] MEDS: Sennosides/Docusate Sodium TABLET PO SCH ×2 (08:15→20:49)
[2021-11-26] MEDS: Insulin LISPRO 300 UNITS/3 ML VIAL SUBQ SCH ×4 (08:16→20:48)
[2021-11-26] MEDS: Lactobacillus 1 EACH CAP.SPRINK PO SCH ×2 (08:16→20:49)
[2021-11-26] MEDS: Aspirin Enteric Coated 81 MG Tablet PO SCH (08:16)
[2021-11-26] MEDS: polyethylene glycoL 3350 17 GM POWD.PACK PO SCH (08:17)
[2021-11-26] MEDS: *HR* OxyCODONE/APAP 5/325 TABLET PO PRN (17:11)
[2021-11-26] MEDS: Mirtazapine 15 MG TABLET PO SCH (20:48)
[2021-11-26] MEDS: tiZANidine 4 MG TABLET PO SCH (20:49)
[2021-11-26] MEDS: traZODone 50 MG TABLET PO SCH (20:50)
[2021-11-26] MEDS: QUEtiapine Fumarate 100 MG TABLET PO SCH (20:50)
[2021-11-27] MEDS: *HR* OxyCODONE/APAP 5/325 TABLET PO PRN ×4 (02:05→21:54)
[2021-11-27] MEDS: *HR* Heparin 5,000 UNIT/ML VIAL SQ SCH ×3 (06:19→21:54)
[2021-11-27] MEDS: Lactobacillus 1 EACH CAP.SPRINK PO SCH ×2 (07:58→20:51)
[2021-11-27] MEDS: Aspirin Enteric Coated 81 MG Tablet PO SCH (07:59)
[2021-11-27] MEDS: Gabapentin 300 MG CAPSULE PO SCH ×4 (07:59→20:50)
[2021-11-27] MEDS: Sennosides/Docusate Sodium TABLET PO SCH ×2 (07:59→20:51)
[2021-11-27] MEDS: polyethylene glycoL 3350 17 GM POWD.PACK PO SCH (08:00)
[2021-11-27] MEDS: Insulin LISPRO 300 UNITS/3 ML VIAL SUBQ SCH ×4 (08:01→20:51)
[2021-11-27] MEDS: Tiotropium 10 INH DOSE IH SCH (08:40)
[2021-11-27] MEDS: Budesonide/Formoterol 160/4.5 1 PUFF INH IH SCH ×2 (08:41→21:27)
[2021-11-27] MEDS: tiZANidine 4 MG TABLET PO SCH (20:50)
[2021-11-27] MEDS: Mirtazapine 15 MG TABLET PO SCH (20:50)
[2021-11-27] MEDS: QUEtiapine Fumarate 100 MG TABLET PO SCH (20:52)
[2021-11-27] MEDS: traZODone 50 MG TABLET PO SCH (20:52)
[2021-11-28] MEDS: *HR* Heparin 5,000 UNIT/ML VIAL SQ SCH ×3 (06:42→22:13)
[2021-11-28] MEDS: *HR* OxyCODONE/APAP 5/325 TABLET PO PRN ×2 (06:42→17:39)
[2021-11-28] MEDS: Sennosides/Docusate Sodium TABLET PO SCH ×2 (07:35→22:12)
[2021-11-28] MEDS: Aspirin Enteric Coated 81 MG Tablet PO SCH (07:35)
[2021-11-28] MEDS: Lactobacillus 1 EACH CAP.SPRINK PO SCH ×2 (07:35→22:10)
[2021-11-28] MEDS: Gabapentin 300 MG CAPSULE PO SCH ×4 (07:35→22:11)
[2021-11-28] MEDS: Insulin LISPRO 300 UNITS/3 ML VIAL SUBQ SCH ×4 (07:35→22:42)
[2021-11-28] MEDS: polyethylene glycoL 3350 17 GM POWD.PACK PO SCH (07:36)
[2021-11-28] MEDS: Budesonide/Formoterol 160/4.5 1 PUFF INH IH SCH ×2 (07:58→20:04)
[2021-11-28] MEDS: Tiotropium 10 INH DOSE IH SCH (07:59)
[2021-11-28] MEDS ORDERED: Insulin DETEMIR 100 UNIT/ML per UNIT SUBQ SCH (21:00)
[2021-11-28] MEDS: Mirtazapine 15 MG TABLET PO SCH (22:11)
[2021-11-28] MEDS: QUEtiapine Fumarate 100 MG TABLET PO SCH (22:12)
[2021-11-28] MEDS: traZODone 50 MG TABLET PO SCH (22:13)
[2021-11-28] MEDS: tiZANidine 4 MG TABLET PO SCH (22:16)
[2021-11-28] MEDS ORDERED: Insulin DETEMIR 100 UNIT/ML per UNIT SUBQ ONE (22:37)
[2021-11-29] MEDS: *HR* Heparin 5,000 UNIT/ML VIAL SQ SCH ×3 (06:50→23:07)
[2021-11-29] MEDS: Lactobacillus 1 EACH CAP.SPRINK PO SCH ×2 (07:41→20:36)
[2021-11-29] MEDS: Aspirin Enteric Coated 81 MG Tablet PO SCH (07:41)
[2021-11-29] MEDS: Sennosides/Docusate Sodium TABLET PO SCH ×2 (07:42→20:37)
[2021-11-29] MEDS: *HR* OxyCODONE/APAP 5/325 TABLET PO PRN ×3 (07:42→23:07)
[2021-11-29] MEDS: Gabapentin 300 MG CAPSULE PO SCH ×4 (07:42→20:38)
[2021-11-29] MEDS: Insulin LISPRO 300 UNITS/3 ML VIAL SUBQ SCH ×4 (07:43→20:44)
[2021-11-29] MEDS: polyethylene glycoL 3350 17 GM POWD.PACK PO SCH (07:44)
[2021-11-29] MEDS: Insulin DETEMIR 100 UNIT/ML X5UNITS SUBQ SCH ×2 (10:05→20:43)
[2021-11-29] MEDS: Budesonide/Formoterol 160/4.5 1 PUFF INH IH SCH ×2 (10:13→21:17)
[2021-11-29] MEDS: Tiotropium 10 INH DOSE IH SCH (10:14)
[2021-11-29] MEDS: traZODone 50 MG TABLET PO SCH (20:36)
[2021-11-29] MEDS: tiZANidine 4 MG TABLET PO SCH (20:36)
[2021-11-29] MEDS: Mirtazapine 15 MG TABLET PO SCH (20:37)
[2021-11-29] MEDS: QUEtiapine Fumarate 100 MG TABLET PO SCH (20:37)
[2021-11-30] MEDS: *HR* Heparin 5,000 UNIT/ML VIAL SQ SCH ×3 (05:51→21:24)
[2021-11-30 07:20] LABS: Basophils % 0.4 %; Eosinophils # 0.1 K/mcL (0.0-0.6); Eosinophils % 1.5 %; Hematocrit 27.2 % (35.3-44.9); Hemoglobin 8.8 g/dL (11.5-15.4); Immature Granulocytes % 2.3 % (0-4); Lymphocytes # 2.2 K/mcL (0.6-4.6); Lymphocytes % 29.8 %; Mean Corpuscular HGB Conc 32.4 g/dL (31.6-35.5); Mean Corpuscular Volume 86.6 fL (83.0-100.0); Mean Platelet Volume 10.1 fL (9.4-12.4); Monocytes # 0.8 K/mcL (0.0-1.3); Monocytes % 10.1 %; Neutrophils # 4.2 K/mcL (1.6-8.9); Platelet Count 235 K/mcL (140-400); Red Blood Count 3.14 M/mcL (3.82-4.97); Red Cell Distribution Width 13.9 % (11.5-14.5); Segmented Neutrophils % 55.9 %; White Blood Count 7.4 K/mcL (4.3-11.1)
[2021-11-30 07:42] LABS: Calcium 10.7 mg/dL (8.6-10.3); Magnesium 1.8 mg/dL (1.6-2.6); Potassium 4.5 mEq/L (3.5-5.1)
[2021-11-30] MEDS: Sennosides/Docusate Sodium TABLET PO SCH ×2 (08:08→19:49)
[2021-11-30] MEDS: Lactobacillus 1 EACH CAP.SPRINK PO SCH ×2 (08:08→19:48)
[2021-11-30] MEDS: Aspirin Enteric Coated 81 MG Tablet PO SCH (08:08)
[2021-11-30] MEDS: Gabapentin 300 MG CAPSULE PO SCH ×4 (08:08→19:49)
[2021-11-30] MEDS: Insulin LISPRO 300 UNITS/3 ML VIAL SUBQ SCH ×4 (08:10→19:49)
[2021-11-30] MEDS: polyethylene glycoL 3350 17 GM POWD.PACK PO SCH (08:11)
[2021-11-30] MEDS: *HR* OxyCODONE/APAP 5/325 TABLET PO PRN ×2 (08:19→21:24)
[2021-11-30] MEDS: Insulin DETEMIR 100 UNIT/ML X5UNITS SUBQ SCH ×2 (09:13→21:25)
[2021-11-30] MEDS: Budesonide/Formoterol 160/4.5 1 PUFF INH IH SCH ×2 (10:34→21:48)
[2021-11-30] MEDS: Tiotropium 10 INH DOSE IH SCH (10:35)
[2021-11-30] MEDS: tiZANidine 4 MG TABLET PO SCH (19:48)
[2021-11-30] MEDS: traZODone 50 MG TABLET PO SCH (19:49)
[2021-11-30] MEDS: Mirtazapine 15 MG TABLET PO SCH (19:49)
[2021-11-30] MEDS: QUEtiapine Fumarate 100 MG TABLET PO SCH (19:50)
[2021-12-01] MEDS: *HR* Heparin 5,000 UNIT/ML VIAL SQ SCH ×3 (05:51→20:23)
[2021-12-01] MEDS: *HR* OxyCODONE/APAP 5/325 TABLET PO PRN ×3 (05:51→20:19)
[2021-12-01] MEDS: Lactobacillus 1 EACH CAP.SPRINK PO SCH ×2 (07:56→20:18)
[2021-12-01] MEDS: Insulin LISPRO 300 UNITS/3 ML VIAL SUBQ SCH ×4 (07:56→20:22)
[2021-12-01] MEDS: Gabapentin 300 MG CAPSULE PO SCH ×4 (07:56→20:19)
[2021-12-01] MEDS: polyethylene glycoL 3350 17 GM POWD.PACK PO SCH (07:56)
[2021-12-01] MEDS: Sennosides/Docusate Sodium TABLET PO SCH ×2 (07:56→20:19)
[2021-12-01] MEDS: Aspirin Enteric Coated 81 MG Tablet PO SCH (07:56)
[2021-12-01] MEDS: Tiotropium 10 INH DOSE IH SCH (08:45)
[2021-12-01] MEDS: Budesonide/Formoterol 160/4.5 1 PUFF INH IH SCH ×2 (08:45→21:00)
[2021-12-01] MEDS: Insulin DETEMIR 100 UNIT/ML X5UNITS SUBQ SCH ×2 (09:03→20:29)
[2021-12-01] MEDS: traZODone 50 MG TABLET PO SCH (20:18)
[2021-12-01] MEDS: tiZANidine 4 MG TABLET PO SCH (20:18)
[2021-12-01] MEDS: Mirtazapine 15 MG TABLET PO SCH (20:19)
[2021-12-01] MEDS: QUEtiapine Fumarate 100 MG TABLET PO SCH (20:19)
[2021-12-02] MEDS: *HR* Heparin 5,000 UNIT/ML VIAL SQ SCH ×3 (05:26→21:17)
[2021-12-02] MEDS: *HR* OxyCODONE/APAP 5/325 TABLET PO PRN ×3 (08:03→21:14)
[2021-12-02] MEDS: Gabapentin 300 MG CAPSULE PO SCH ×4 (08:03→21:14)
[2021-12-02] MEDS: Aspirin Enteric Coated 81 MG Tablet PO SCH (08:03)
[2021-12-02] MEDS: Sennosides/Docusate Sodium TABLET PO SCH ×2 (08:03→21:14)
[2021-12-02] MEDS: Lactobacillus 1 EACH CAP.SPRINK PO SCH ×2 (08:03→21:15)
[2021-12-02] MEDS: polyethylene glycoL 3350 17 GM POWD.PACK PO SCH (08:04)
[2021-12-02] MEDS: Insulin LISPRO 300 UNITS/3 ML VIAL SUBQ SCH ×4 (08:04→21:13)
[2021-12-02] MEDS: Tiotropium 10 INH DOSE IH SCH (08:58)
[2021-12-02] MEDS: Budesonide/Formoterol 160/4.5 1 PUFF INH IH SCH ×2 (08:58→21:37)
[2021-12-02] MEDS: Insulin DETEMIR 100 UNIT/ML X5UNITS SUBQ SCH ×2 (09:12→21:31)
[2021-12-02] MEDS: traZODone 50 MG TABLET PO SCH (21:13)
[2021-12-02] MEDS: tiZANidine 4 MG TABLET PO SCH (21:14)
[2021-12-02] MEDS: Mirtazapine 15 MG TABLET PO SCH (21:14)
[2021-12-02] MEDS: QUEtiapine Fumarate 100 MG TABLET PO SCH (21:15)
[2021-12-03] MEDS: *HR* Heparin 5,000 UNIT/ML VIAL SQ SCH ×3 (06:52→20:44)
[2021-12-03] MEDS: Budesonide/Formoterol 160/4.5 1 PUFF INH IH SCH ×2 (08:31→21:24)
[2021-12-03] MEDS: Tiotropium 10 INH DOSE IH SCH (08:32)
[2021-12-03] MEDS: Lactobacillus 1 EACH CAP.SPRINK PO SCH ×2 (08:55→20:41)
[2021-12-03] MEDS: Sennosides/Docusate Sodium TABLET PO SCH ×2 (08:55→20:43)
[2021-12-03] MEDS: Aspirin Enteric Coated 81 MG Tablet PO SCH (08:55)
[2021-12-03] MEDS: Gabapentin 300 MG CAPSULE PO SCH ×4 (08:56→20:41)
[2021-12-03] MEDS: *HR* OxyCODONE/APAP 5/325 TABLET PO PRN ×2 (08:56→15:10)
[2021-12-03] MEDS: polyethylene glycoL 3350 17 GM POWD.PACK PO SCH (08:56)
[2021-12-03] MEDS: Insulin LISPRO 300 UNITS/3 ML VIAL SUBQ SCH ×4 (08:57→20:54)
[2021-12-03] MEDS: Insulin DETEMIR 100 UNIT/ML X5UNITS SUBQ SCH ×2 (10:54→20:51)
[2021-12-03] MEDS: QUEtiapine Fumarate 100 MG TABLET PO SCH (20:41)
[2021-12-03] MEDS: tiZANidine 4 MG TABLET PO SCH (20:42)
[2021-12-03] MEDS: traZODone 50 MG TABLET PO SCH (20:43)
[2021-12-03] MEDS: Mirtazapine 15 MG TABLET PO SCH (20:43)
[2021-12-04] MEDS: *HR* OxyCODONE/APAP 5/325 TABLET PO PRN ×3 (03:27→22:09)
[2021-12-04] MEDS: *HR* Heparin 5,000 UNIT/ML VIAL SQ SCH ×3 (06:51→20:30)
[2021-12-04] MEDS: Budesonide/Formoterol 160/4.5 1 PUFF INH IH SCH ×2 (07:46→20:26)
[2021-12-04] MEDS: Tiotropium 10 INH DOSE IH SCH (07:47)
[2021-12-04 07:53] LABS: Hematocrit 26.7 % (35.3-44.9); Hemoglobin 8.6 g/dL (11.5-15.4); Mean Corpuscular HGB Conc 32.2 g/dL (31.6-35.5); Mean Corpuscular Hemoglobin 28.3 pg (28.0-33.3); Mean Corpuscular Volume 87.8 fL (83.0-100.0); Mean Platelet Volume 10.3 fL (9.4-12.4); Platelet Count 256 K/mcL (140-400); Red Blood Count 3.04 M/mcL (3.82-4.97); Red Cell Distribution Width 14.1 % (11.5-14.5); White Blood Count 7.4 K/mcL (4.3-11.1)
[2021-12-04] MEDS: Gabapentin 300 MG CAPSULE PO SCH ×4 (08:03→20:29)
[2021-12-04] MEDS: Aspirin Enteric Coated 81 MG Tablet PO SCH (08:03)
[2021-12-04] MEDS: Lactobacillus 1 EACH CAP.SPRINK PO SCH ×2 (08:04→20:29)
[2021-12-04] MEDS: polyethylene glycoL 3350 17 GM POWD.PACK PO SCH (08:04)
[2021-12-04] MEDS: Sennosides/Docusate Sodium TABLET PO SCH ×2 (08:05→20:29)
[2021-12-04] MEDS: Insulin LISPRO 300 UNITS/3 ML VIAL SUBQ SCH ×4 (08:05→20:31)
[2021-12-04 09:24] LABS: Calcium 10.5 mg/dL (8.6-10.3); Potassium 4.6 mEq/L (3.5-5.1)
[2021-12-04] MEDS: Insulin DETEMIR 100 UNIT/ML X5UNITS SUBQ SCH ×2 (09:55→20:31)
[2021-12-04] MEDS ORDERED: *HR* OxyCODONE/APAP 5/325 TABLET PO ONE (18:10)
[2021-12-04] MEDS: QUEtiapine Fumarate 100 MG TABLET PO SCH (20:29)
[2021-12-04] MEDS: traZODone 50 MG TABLET PO SCH (20:29)
[2021-12-04] MEDS: tiZANidine 4 MG TABLET PO SCH (20:30)
[2021-12-04] MEDS: Mirtazapine 15 MG TABLET PO SCH (20:30)
[2021-12-05] MEDS: *HR* Heparin 5,000 UNIT/ML VIAL SQ SCH ×3 (06:38→20:55)
[2021-12-05] MEDS: Tiotropium 10 INH DOSE IH SCH (09:01)
[2021-12-05] MEDS: Budesonide/Formoterol 160/4.5 1 PUFF INH IH SCH ×2 (09:02→20:21)
[2021-12-05] MEDS: Gabapentin 300 MG CAPSULE PO SCH ×4 (09:42→20:50)
[2021-12-05] MEDS: *HR* OxyCODONE/APAP 5/325 TABLET PO PRN ×2 (09:42→20:50)
[2021-12-05] MEDS: Lactobacillus 1 EACH CAP.SPRINK PO SCH ×2 (09:42→20:50)
[2021-12-05] MEDS: Sennosides/Docusate Sodium TABLET PO SCH ×2 (09:42→20:53)
[2021-12-05] MEDS: Aspirin Enteric Coated 81 MG Tablet PO SCH (09:43)
[2021-12-05] MEDS: Insulin DETEMIR 100 UNIT/ML X5UNITS SUBQ SCH ×2 (09:43→20:57)
[2021-12-05] MEDS: polyethylene glycoL 3350 17 GM POWD.PACK PO SCH (09:44)
[2021-12-05] MEDS: Insulin LISPRO 300 UNITS/3 ML VIAL SUBQ SCH ×4 (09:44→20:58)
[2021-12-05] MEDS ORDERED: Ketorolac 30 MG/ML VIAL IVP PRN (12:46)
[2021-12-05] MEDS ORDERED: Ketorolac 15 MG/ML VIAL IVP PRN (13:00)
[2021-12-05 13:03] LABS: Basophils % 0.2 %; Eosinophils # 0.1 K/mcL (0.0-0.6); Eosinophils % 1.7 %; Hematocrit 26.7 % (35.3-44.9); Hemoglobin 8.5 g/dL (11.5-15.4); Immature Granulocytes % 1.6 % (0-4); Lymphocytes # 1.9 K/mcL (0.6-4.6); Lymphocytes % 23.7 %; Mean Corpuscular HGB Conc 31.8 g/dL (31.6-35.5); Mean Corpuscular Hemoglobin 28.2 pg (28.0-33.3); Mean Corpuscular Volume 88.7 fL (83.0-100.0); Monocytes # 0.6 K/mcL (0.0-1.3); Monocytes % 7.7 %; Neutrophils # 5.3 K/mcL (1.6-8.9); Platelet Count 246 K/mcL (140-400); Red Blood Count 3.01 M/mcL (3.82-4.97); Red Cell Distribution Width 14.1 % (11.5-14.5); Segmented Neutrophils % 65.1 %; White Blood Count 8.2 K/mcL (4.3-11.1)
[2021-12-05 13:18] LABS: Calcium 9.6 mg/dL (8.6-10.3); Potassium 4.7 mEq/L (3.5-5.1)
[2021-12-05] MEDS ORDERED: Iopamidol - 370 500 ML MLS IVP ONE ×4 (13:20)
[2021-12-05] MEDS ORDERED: 0.9 % Sodium Chloride 1,000 ML IVC SCH (14:15)
[2021-12-05] MEDS ORDERED: *HR* LORazepam 2 MG/ML VIAL IVP SCH (18:00)
[2021-12-05] MEDS ORDERED: *HR* LORazepam 2 MG/ML VIAL IVP PRN (19:25)
[2021-12-05] MEDS: QUEtiapine Fumarate 100 MG TABLET PO SCH (20:50)
[2021-12-05] MEDS: tiZANidine 4 MG TABLET PO SCH (20:51)
[2021-12-05] MEDS: Mirtazapine 15 MG TABLET PO SCH (20:52)
[2021-12-06] MEDS: *HR* Heparin 5,000 UNIT/ML VIAL SQ SCH ×3 (05:15→20:44)
[2021-12-06] MEDS: Gabapentin 300 MG CAPSULE PO SCH ×4 (08:22→20:42)
[2021-12-06] MEDS: Aspirin Enteric Coated 81 MG Tablet PO SCH (08:22)
[2021-12-06] MEDS: Lactobacillus 1 EACH CAP.SPRINK PO SCH ×2 (08:22→20:42)
[2021-12-06] MEDS: Sennosides/Docusate Sodium TABLET PO SCH ×2 (08:22→20:42)
[2021-12-06] MEDS: polyethylene glycoL 3350 17 GM POWD.PACK PO SCH (08:23)
[2021-12-06] MEDS: Insulin LISPRO 300 UNITS/3 ML VIAL SUBQ SCH ×4 (08:23→20:42)
[2021-12-06] MEDS: *HR* OxyCODONE/APAP 5/325 TABLET PO PRN ×3 (08:26→20:43)
[2021-12-06] MEDS: Insulin DETEMIR 100 UNIT/ML X5UNITS SUBQ SCH ×2 (08:33→20:41)
[2021-12-06] MEDS: Budesonide/Formoterol 160/4.5 1 PUFF INH IH SCH ×2 (08:50→21:02)
[2021-12-06] MEDS: Tiotropium 10 INH DOSE IH SCH (08:50)
[2021-12-06] MEDS ORDERED: *HR* Heparin 5,000 UNIT/ML VIAL IVP ONE (13:51)
[2021-12-06] MEDS ORDERED: *HR* Heparin 5,000 UNIT/ML VIAL IVP PRN ×2 (13:51)
[2021-12-06 14:15] LABS: Hematocrit 27.6 % (35.3-44.9); Hemoglobin 8.8 g/dL (11.5-15.4); Mean Corpuscular HGB Conc 31.9 g/dL (31.6-35.5); Mean Corpuscular Hemoglobin 28.2 pg (28.0-33.3); Mean Corpuscular Volume 88.5 fL (83.0-100.0); Mean Platelet Volume 9.6 fL (9.4-12.4); Platelet Count 276 K/mcL (140-400); Red Blood Count 3.12 M/mcL (3.82-4.97); Red Cell Distribution Width 14.2 % (11.5-14.5); White Blood Count 8.7 K/mcL (4.3-11.1)
[2021-12-06 14:23] LABS: Heparin anti-factor XA UFH < 0.04 IU/mL (0.30-0.70)
[2021-12-06 14:24] LABS: INR 1.1; Prothrombin Time 11.7 Seconds (9.4-12.1)
[2021-12-06] MEDS: Doxycycline 100 MG CAPSULE PO SCH ×2 (14:32→20:43)
[2021-12-06] MEDS: Heparin 25,000UNIT/250ML 1/2NS 25,000 UNIT/250 ML IV.SOLN IVC SCH (14:37)
[2021-12-06] MEDS: QUEtiapine Fumarate 100 MG TABLET PO SCH (20:41)
[2021-12-06] MEDS: tiZANidine 4 MG TABLET PO SCH (20:42)
[2021-12-06] MEDS: Mirtazapine 15 MG TABLET PO SCH (20:43)
[2021-12-06] MEDS: Ondansetron ODT 4 MG TAB.RAPDIS SL PRN (21:29)
[2021-12-07] MEDS: *HR* OxyCODONE/APAP 5/325 TABLET PO PRN ×2 (06:11→13:16)
[2021-12-07] MEDS: *HR* Heparin 5,000 UNIT/ML VIAL SQ SCH ×3 (06:12→23:24)
[2021-12-07] MEDS: Sennosides/Docusate Sodium TABLET PO SCH ×2 (08:12→20:23)
[2021-12-07] MEDS: Aspirin Enteric Coated 81 MG Tablet PO SCH (08:13)
[2021-12-07] MEDS: Gabapentin 300 MG CAPSULE PO SCH ×4 (08:13→20:23)
[2021-12-07] MEDS: polyethylene glycoL 3350 17 GM POWD.PACK PO SCH (08:13)
[2021-12-07] MEDS: Lactobacillus 1 EACH CAP.SPRINK PO SCH ×2 (08:13→20:21)
[2021-12-07] MEDS: Doxycycline 100 MG CAPSULE PO SCH ×2 (08:13→20:21)
[2021-12-07] MEDS: Insulin LISPRO 300 UNITS/3 ML VIAL SUBQ SCH ×4 (08:14→20:45)
[2021-12-07] MEDS: Tiotropium 10 INH DOSE IH SCH (08:31)
[2021-12-07] MEDS: Budesonide/Formoterol 160/4.5 1 PUFF INH IH SCH ×2 (08:31→19:52)
[2021-12-07] MEDS: Insulin DETEMIR 100 UNIT/ML X5UNITS SUBQ SCH ×2 (09:16→20:24)
[2021-12-07] MEDS: Heparin 25,000UNIT/250ML 1/2NS 25,000 UNIT/250 ML IV.SOLN IVC SCH (14:30)
[2021-12-07] MEDS: QUEtiapine Fumarate 100 MG TABLET PO SCH (20:21)
[2021-12-07] MEDS: Mirtazapine 15 MG TABLET PO SCH (20:22)
[2021-12-07] MEDS: tiZANidine 4 MG TABLET PO SCH (20:23)
[2021-12-08] MEDS: *HR* Heparin 5,000 UNIT/ML VIAL SQ SCH ×3 (06:31→20:59)
[2021-12-08] MEDS: Insulin LISPRO 300 UNITS/3 ML VIAL SUBQ SCH ×4 (08:03→21:02)
[2021-12-08] MEDS: Budesonide/Formoterol 160/4.5 1 PUFF INH IH SCH ×2 (08:06→20:54)
[2021-12-08] MEDS: Tiotropium 10 INH DOSE IH SCH (08:06)
[2021-12-08] MEDS: Doxycycline 100 MG CAPSULE PO SCH ×2 (08:35→20:55)
[2021-12-08] MEDS: Sennosides/Docusate Sodium TABLET PO SCH ×2 (08:35→20:53)
[2021-12-08] MEDS: Aspirin Enteric Coated 81 MG Tablet PO SCH (08:35)
[2021-12-08] MEDS: Gabapentin 300 MG CAPSULE PO SCH ×4 (08:35→20:55)
[2021-12-08] MEDS: polyethylene glycoL 3350 17 GM POWD.PACK PO SCH (08:37)
[2021-12-08] MEDS: Lactobacillus 1 EACH CAP.SPRINK PO SCH ×2 (08:37→20:55)
[2021-12-08] MEDS: *HR* OxyCODONE/APAP 5/325 TABLET PO PRN ×2 (09:31→19:11)
[2021-12-08] MEDS: Insulin DETEMIR 100 UNIT/ML X5UNITS SUBQ SCH ×2 (09:31→22:30)
[2021-12-08] MEDS: tiZANidine 4 MG TABLET PO SCH (20:54)
[2021-12-08] MEDS: Mirtazapine 15 MG TABLET PO SCH (20:54)
[2021-12-08] MEDS: QUEtiapine Fumarate 100 MG TABLET PO SCH (20:55)
[2021-12-09] MEDS: *HR* OxyCODONE/APAP 5/325 TABLET PO PRN ×4 (01:12→22:04)
[2021-12-09] MEDS: *HR* Heparin 5,000 UNIT/ML VIAL SQ SCH ×3 (05:44→20:34)
[2021-12-09] MEDS: Insulin LISPRO 300 UNITS/3 ML VIAL SUBQ SCH ×4 (07:40→20:39)
[2021-12-09] MEDS: Sennosides/Docusate Sodium TABLET PO SCH ×2 (08:47→20:32)
[2021-12-09] MEDS: Aspirin Enteric Coated 81 MG Tablet PO SCH (08:47)
[2021-12-09] MEDS: Lactobacillus 1 EACH CAP.SPRINK PO SCH ×2 (08:47→20:32)
[2021-12-09] MEDS: Doxycycline 100 MG CAPSULE PO SCH ×2 (08:47→20:33)
[2021-12-09] MEDS: Gabapentin 300 MG CAPSULE PO SCH ×4 (08:48→20:32)
[2021-12-09] MEDS: Tiotropium 10 INH DOSE IH SCH (09:53)
[2021-12-09] MEDS: Budesonide/Formoterol 160/4.5 1 PUFF INH IH SCH ×2 (09:53→21:44)
[2021-12-09] MEDS: Insulin DETEMIR 100 UNIT/ML X5UNITS SUBQ SCH ×2 (10:05→20:41)
[2021-12-09] MEDS: polyethylene glycoL 3350 17 GM POWD.PACK PO SCH (10:06)
[2021-12-09] MEDS: QUEtiapine Fumarate 100 MG TABLET PO SCH (20:32)
[2021-12-09] MEDS: Mirtazapine 15 MG TABLET PO SCH (20:33)
[2021-12-09] MEDS: tiZANidine 4 MG TABLET PO SCH (20:33)
[2021-12-10] MEDS: *HR* Heparin 5,000 UNIT/ML VIAL SQ SCH ×3 (06:07→21:27)
[2021-12-10] MEDS: Insulin LISPRO 300 UNITS/3 ML VIAL SUBQ SCH ×4 (08:23→21:28)
[2021-12-10] MEDS: polyethylene glycoL 3350 17 GM POWD.PACK PO SCH (08:25)
[2021-12-10] MEDS: Gabapentin 300 MG CAPSULE PO SCH ×4 (08:26→21:26)
[2021-12-10] MEDS: Doxycycline 100 MG CAPSULE PO SCH ×2 (08:26→21:26)
[2021-12-10] MEDS: Lactobacillus 1 EACH CAP.SPRINK PO SCH ×2 (08:26→21:26)
[2021-12-10] MEDS: Aspirin Enteric Coated 81 MG Tablet PO SCH (08:26)
[2021-12-10] MEDS: Sennosides/Docusate Sodium TABLET PO SCH ×2 (08:26→21:25)
[2021-12-10] MEDS: *HR* OxyCODONE/APAP 5/325 TABLET PO PRN ×3 (08:33→21:26)
[2021-12-10] MEDS: Insulin DETEMIR 100 UNIT/ML X5UNITS SUBQ SCH ×2 (09:25→21:28)
[2021-12-10] MEDS: Budesonide/Formoterol 160/4.5 1 PUFF INH IH SCH ×2 (09:38→22:36)
[2021-12-10] MEDS: Tiotropium 10 INH DOSE IH SCH (09:39)
[2021-12-10] MEDS: QUEtiapine Fumarate 100 MG TABLET PO SCH (21:26)
[2021-12-10] MEDS: tiZANidine 4 MG TABLET PO SCH (21:27)
[2021-12-10] MEDS: Mirtazapine 15 MG TABLET PO SCH (21:27)
[2021-12-11] MEDS: *HR* OxyCODONE/APAP 5/325 TABLET PO PRN ×3 (06:31→18:49)
[2021-12-11] MEDS: *HR* Heparin 5,000 UNIT/ML VIAL SQ SCH ×3 (06:31→21:01)
[2021-12-11] MEDS: Insulin LISPRO 300 UNITS/3 ML VIAL SUBQ SCH ×4 (08:41→21:14)
[2021-12-11] MEDS: Aspirin Enteric Coated 81 MG Tablet PO SCH (08:42)
[2021-12-11] MEDS: Sennosides/Docusate Sodium TABLET PO SCH ×2 (08:42→20:59)
[2021-12-11] MEDS: Insulin DETEMIR 100 UNIT/ML X5UNITS SUBQ SCH ×2 (08:42→20:57)
[2021-12-11] MEDS: Gabapentin 300 MG CAPSULE PO SCH ×4 (08:42→20:59)
[2021-12-11] MEDS: Doxycycline 100 MG CAPSULE PO SCH ×2 (08:42→20:59)
[2021-12-11] MEDS: polyethylene glycoL 3350 17 GM POWD.PACK PO SCH (08:43)
[2021-12-11] MEDS: Lactobacillus 1 EACH CAP.SPRINK PO SCH ×2 (08:43→20:59)
[2021-12-11] MEDS: Tiotropium 10 INH DOSE IH SCH (08:45)
[2021-12-11] MEDS: Budesonide/Formoterol 160/4.5 1 PUFF INH IH SCH ×2 (08:45→21:48)
[2021-12-11] MEDS: Ondansetron ODT 4 MG TAB.RAPDIS SL PRN (18:24)
[2021-12-11] MEDS: QUEtiapine Fumarate 100 MG TABLET PO SCH (20:57)
[2021-12-11] MEDS: tiZANidine 4 MG TABLET PO SCH (20:59)
[2021-12-11] MEDS: Mirtazapine 15 MG TABLET PO SCH (21:00)
[2021-12-12] MEDS: *HR* OxyCODONE/APAP 5/325 TABLET PO PRN ×4 (00:58→21:36)
[2021-12-12] MEDS: *HR* Heparin 5,000 UNIT/ML VIAL SQ SCH ×3 (06:59→21:35)
[2021-12-12] MEDS: Insulin LISPRO 300 UNITS/3 ML VIAL SUBQ SCH ×4 (08:27→21:36)
[2021-12-12] MEDS: Doxycycline 100 MG CAPSULE PO SCH (08:41)
[2021-12-12] MEDS: Gabapentin 300 MG CAPSULE PO SCH ×4 (08:41→21:36)
[2021-12-12] MEDS: Aspirin Enteric Coated 81 MG Tablet PO SCH (08:41)
[2021-12-12] MEDS: Insulin DETEMIR 100 UNIT/ML X5UNITS SUBQ SCH ×2 (08:42→21:37)
[2021-12-12] MEDS: Sennosides/Docusate Sodium TABLET PO SCH ×2 (08:42→21:35)
[2021-12-12] MEDS: Lactobacillus 1 EACH CAP.SPRINK PO SCH ×2 (08:42→21:35)
[2021-12-12] MEDS: polyethylene glycoL 3350 17 GM POWD.PACK PO SCH (08:43)
[2021-12-12] MEDS: Budesonide/Formoterol 160/4.5 1 PUFF INH IH SCH ×2 (09:11→21:13)
[2021-12-12] MEDS: Tiotropium 10 INH DOSE IH SCH (09:11)
[2021-12-12] MEDS: Mirtazapine 15 MG TABLET PO SCH (21:35)
[2021-12-12] MEDS: tiZANidine 4 MG TABLET PO SCH (21:35)
[2021-12-12] MEDS: QUEtiapine Fumarate 100 MG TABLET PO SCH (21:36)
[2021-12-13] MEDS: *HR* Heparin 5,000 UNIT/ML VIAL SQ SCH ×3 (06:56→21:23)
[2021-12-13] MEDS: *HR* OxyCODONE/APAP 5/325 TABLET PO PRN ×2 (06:56→16:44)
[2021-12-13] MEDS: Insulin LISPRO 300 UNITS/3 ML VIAL SUBQ SCH ×4 (07:32→21:25)
[2021-12-13] MEDS: Gabapentin 300 MG CAPSULE PO SCH ×4 (07:33→21:23)
[2021-12-13] MEDS: Lactobacillus 1 EACH CAP.SPRINK PO SCH ×2 (07:33→21:24)
[2021-12-13] MEDS: Sennosides/Docusate Sodium TABLET PO SCH ×2 (07:33→21:41)
[2021-12-13] MEDS: Aspirin Enteric Coated 81 MG Tablet PO SCH (07:33)
[2021-12-13] MEDS: polyethylene glycoL 3350 17 GM POWD.PACK PO SCH (07:34)
[2021-12-13] MEDS: Budesonide/Formoterol 160/4.5 1 PUFF INH IH SCH ×2 (08:03→21:14)
[2021-12-13] MEDS: Tiotropium 10 INH DOSE IH SCH (08:03)
[2021-12-13] MEDS: Insulin DETEMIR 100 UNIT/ML X5UNITS SUBQ SCH ×2 (11:31→21:23)
[2021-12-13] MEDS ORDERED: Acetaminophen 325 MG TABLET PO PRN (15:10)
[2021-12-13] MEDS: QUEtiapine Fumarate 100 MG TABLET PO SCH (21:23)
[2021-12-13] MEDS: Mirtazapine 15 MG TABLET PO SCH (21:24)
[2021-12-13] MEDS: tiZANidine 4 MG TABLET PO SCH (21:24)
[2021-12-13] MEDS: Ondansetron ODT 4 MG TAB.RAPDIS SL PRN (21:24)
[2021-12-14] MEDS: *HR* Heparin 5,000 UNIT/ML VIAL SQ SCH ×3 (06:54→20:10)
[2021-12-14] MEDS: Insulin LISPRO 300 UNITS/3 ML VIAL SUBQ SCH ×4 (07:49→20:02)
[2021-12-14] MEDS: Tiotropium 10 INH DOSE IH SCH (09:41)
[2021-12-14] MEDS: Budesonide/Formoterol 160/4.5 1 PUFF INH IH SCH ×2 (09:41→22:24)
[2021-12-14] MEDS: Lactobacillus 1 EACH CAP.SPRINK PO SCH ×2 (10:32→20:01)
[2021-12-14] MEDS: Aspirin Enteric Coated 81 MG Tablet PO SCH (10:33)
[2021-12-14] MEDS: Gabapentin 300 MG CAPSULE PO SCH ×4 (10:33→20:01)
[2021-12-14] MEDS: Insulin DETEMIR 100 UNIT/ML X5UNITS SUBQ SCH ×2 (10:34→20:07)
[2021-12-14] MEDS: Sennosides/Docusate Sodium TABLET PO SCH ×2 (10:34→20:01)
[2021-12-14] MEDS: polyethylene glycoL 3350 17 GM POWD.PACK PO SCH (10:34)
[2021-12-14] MEDS: *HR* OxyCODONE/APAP 5/325 TABLET PO PRN ×2 (13:42→20:01)
[2021-12-14 16:32] LABS: Influenza A PCR Negative (Negative); Influenza B PCR Negative (Negative); Resp. Syncytial Virus PCR Negative (Negative)
[2021-12-14 16:33] LABS: SARS-CoV-2 by PCR (In House) Negative (Negative)
[2021-12-14] MEDS: tiZANidine 4 MG TABLET PO SCH (20:01)
[2021-12-14] MEDS: Mirtazapine 15 MG TABLET PO SCH (20:01)
[2021-12-14] MEDS: QUEtiapine Fumarate 100 MG TABLET PO SCH (20:02)
[2021-12-15] MEDS: *HR* Heparin 5,000 UNIT/ML VIAL SQ SCH ×3 (06:25→21:58)
[2021-12-15] MEDS: Insulin LISPRO 300 UNITS/3 ML VIAL SUBQ SCH ×4 (08:29→21:58)
[2021-12-15] MEDS: Sennosides/Docusate Sodium TABLET PO SCH ×2 (08:31→21:58)
[2021-12-15] MEDS: Gabapentin 300 MG CAPSULE PO SCH ×4 (08:32→21:59)
[2021-12-15] MEDS: *HR* OxyCODONE/APAP 5/325 TABLET PO PRN ×2 (08:32→21:59)
[2021-12-15] MEDS: Aspirin Enteric Coated 81 MG Tablet PO SCH (08:32)
[2021-12-15] MEDS: Lactobacillus 1 EACH CAP.SPRINK PO SCH ×2 (08:33→21:59)
[2021-12-15] MEDS: polyethylene glycoL 3350 17 GM POWD.PACK PO SCH (08:33)
[2021-12-15] MEDS: Budesonide/Formoterol 160/4.5 1 PUFF INH IH SCH ×2 (09:12→21:09)
[2021-12-15] MEDS: Tiotropium 10 INH DOSE IH SCH (09:13)
[2021-12-15] MEDS: Insulin DETEMIR 100 UNIT/ML X5UNITS SUBQ SCH ×2 (09:50→21:58)
[2021-12-15 19:45] VITALS: RESP 17
[2021-12-15] MEDS: tiZANidine 4 MG TABLET PO SCH (21:59)
[2021-12-15] MEDS: Mirtazapine 15 MG TABLET PO SCH (21:59)
[2021-12-15] MEDS: QUEtiapine Fumarate 100 MG TABLET PO SCH (21:59)
[2021-12-15] MEDS: Ondansetron ODT 4 MG TAB.RAPDIS SL PRN (22:23)
[2021-12-16] MEDS: *HR* Heparin 5,000 UNIT/ML VIAL SQ SCH ×2 (05:57→15:42)
[2021-12-16 07:04] VITALS: PULSE 59; TEMP 98; O2SAT 93
[2021-12-16] MEDS: Insulin LISPRO 300 UNITS/3 ML VIAL SUBQ SCH ×3 (07:59→17:05)
[2021-12-16] MEDS: Sennosides/Docusate Sodium TABLET PO SCH (08:15)
[2021-12-16] MEDS: Aspirin Enteric Coated 81 MG Tablet PO SCH (08:15)
[2021-12-16] MEDS: Lactobacillus 1 EACH CAP.SPRINK PO SCH (08:15)
[2021-12-16] MEDS: Gabapentin 300 MG CAPSULE PO SCH ×3 (08:15→17:14)
[2021-12-16] MEDS: polyethylene glycoL 3350 17 GM POWD.PACK PO SCH (08:15)
[2021-12-16 08:21] VITALS: BP 122/60
[2021-12-16] MEDS: Tiotropium 10 INH DOSE IH SCH (09:09)
[2021-12-16] MEDS: Budesonide/Formoterol 160/4.5 1 PUFF INH IH SCH (09:09)
[2021-12-16] MEDS: Insulin DETEMIR 100 UNIT/ML X5UNITS SUBQ SCH (09:41)
[2021-12-16] MEDS: *HR* OxyCODONE/APAP 5/325 TABLET PO PRN (15:42)
== END 2021-12-16 17:30 | disposition short-term general hospital (02) | DRG 493 ==
LOC: SUATTDRO 15:17 → INPPIK 15:17
PROVIDERS: ADMIT Internal Medicine; ATTEND Nurse Practitioner